=== PATIENT | female | born 1970 | race Caucasian/White ===

== ENCOUNTER 2017-07-06 21:09 | Emergency (ER) | payer BC ==
[2017-07-06] MEDS ORDERED: Aspirin 81 MG Tab.Chew PO ONE (21:24)
[2017-07-06 21:47] VITALS: BP 109/78
[2017-07-06 21:47] LABS: CHLORIDE,CL 106 mEq/L (98-106); SODIUM,NA 139 mEq/L (136-145)
--- NOTE | 2017-07-06 22:18 | EDM.PDOC ---
ED HPI GENERAL MEDICAL PROBLEM - General Chief Complaint: Chest Pain Stated Complaint: "Having chest pain" Time Seen by Provider: 07/06/17 22:14 Source of Information: Reports: Patient History Limitations: Reports: No Limitations - History of Present Illness INITIAL COMMENTS - FREE TEXT/NARRATIVE: Rossana is a 46 yo female who presents to the ER this evening with concerns of lightheadedness and chest pain. States the pain has been intermittent and was seen yesterday in clinic by Ashia Barron. She underwent an EKG and laboratory work with no abnormalities noted. laboratory work was stable with no elevation in cardiac enzymes. She states her heart rate has been elevating as well at times and Dr. Escobar, her primary, has put her on Cardizem for this. She admits the pain is midsternal radiating into the left chest/arm. She denies any shortness of breath with it. States she feels really tired. Today she just relaxed. Is scheduled to undergo an echocardiogram on Wednesday. Onset Date: 07/02/17 Duration: Intermittent Location: Reports: Chest Quality: Reports: Ache, Pressure, Sharp, Stabbing Associated Symptoms: Reports: Headaches Chest Pain Score (Numeric/FACES): 5 - Related Data Allergies Allergy/AdvReac Type Severity Reaction Status Date / Time meperidine HCl [From Demerol] Allergy Rash Verified 11/21/15 09:01 Penicillins Allergy Rash Verified 11/21/15 09:01 Home Meds: Home Meds Estrogens, Conjugated [Premarin] 1 tab PO DAILY 07/09/13 [History] Folic Acid 1 mg PO DAILY 07/09/13 [History] Magnesium Amino Acid Chelate [Magnesium] 100 mg PO DAILY 07/09/13 [History] Melatonin/Pyridoxine HCl (B6) [Melatonin 3 mg Tablet] 1 each PO BEDTIME [History] Multivitamin with Minerals [Multiple Vitamin] 1 tab PO DAILY 07/09/13 [History] QUEtiapine [SEROquel] 50 mg PO BEDTIME 07/09/13 [History] Zolpidem [Ambien] 5 mg PO BEDTIME 07/09/13 [History] risperiDONE [RisperiDAL] 4 mg PO BEDTIME 07/09/13 [History] Aspirin [Halfprin] 81 mg PO DAILY 03/18/15 [History] Celecoxib [CeleBREX] 200 mg PO DAILY 11/21/15 [History] Furosemide [Lasix] 20 mg PO DAILY 07/06/17 [History] Past Medical History Cardiovascular History: Reports: High Cholesterol, Hypertension Psychiatric History: Reports: Anxiety, Bipolar, Depression - Infectious Disease History Infectious Disease History: Reports: MRSA - Past Surgical History GI Surgical History: Reports: Appendectomy, Bariatric Procedure, Cholecystectomy Female Surgical History: Reports: Section, Oophorectomy Social & Family History - Tobacco Use Smoking Status *Q: Never Smoker Years of Tobacco use: 1 Used Tobacco, but Quit: Yes Month/Year Tobacco Last Used: 14 years ago Second Hand Smoke Exposure: No - Alcohol Use Days Per Week of Alcohol Use: 0 - Recreational Drug Use Recreational Drug Use: No ED ROS GENERAL - Review of Systems Review Of Systems: See Below Constitutional: Reports: Weakness, Fatigue. Denies: Fever, Chills HEENT: Reports: No Symptoms Respiratory: Reports: No Symptoms Cardiovascular: Reports: Chest Pain, Lightheadedness, Palpitations GI/Abdominal: Reports: No Symptoms : Reports: No Symptoms ED EXAM, GENERAL - Physical Exam Exam: See Below Exam Limited By: No Limitations General Appearance: Alert, Anxious Ears: Normal External Exam, Hearing Grossly Normal Nose: Normal Inspection, No Blood Throat/Mouth: Normal Inspection, Normal Lips, Normal Voice, No Airway Compromise Head: Atraumatic, Normocephalic Neck: Normal Inspection, Supple Respiratory/Chest: No Respiratory Distress, Lungs Clear, Normal Breath Sounds Cardiovascular: Normal Peripheral Pulses, No Edema, No Murmur, Tachycardia GI/Abdominal: Normal Bowel Sounds, Soft, Non-Tender Extremities: Normal Inspection, No Pedal Edema Neurological: Alert, Oriented, Normal Cognition, No Motor/Sensory Deficits Psychiatric: Anxious. No: Depressed Mood, Flat Affect, Tearful Skin Exam: Warm, Dry, Intact, Normal Color, No Rash EKG INTERPRETATION Rhythm: Other (sinus tachycardia) Course - Vital Signs Last Recorded V/S: Last Vital Signs Temp 96.9 F 07/06/17 21:46 Pulse 128 H 07/06/17 21:46 Resp 20 07/06/17 21:46 BP 109/78 07/06/17 21:46 Pulse Ox 96 07/06/17 21:46 - Orders/Labs/Meds Orders: Active Orders 24 hr Category Date Time Status EKG Documentation Completion [RC] STAT Care 07/06/17 21:23 Active CXR [Chest 2V] [CR] Stat Exams 07/06/17 21:23 Taken Labs: Laboratory Tests 07/06/17 07/06/17 07/06/17 Range/Units 21:23 21:23 21:23 WBC 9.4 (5.0-10.0) 10^3/uL RBC 4.77 (4.00-5.50) 10^6/uL Hgb 13.4 (12.0-16.0) g/dL Hct 41.7 (37.0-47.0) % MCV 87.4 (82.0-94.0) fL MCH 28.1 (27.0-32.0) pg MCHC 32.1 L (33.0-38.0) g/dL RDW Coeff of Escobar 15.4 H (11.0-15.0) % Plt Count 325 (150-400) 10^3/uL Neut % (Auto) 60.3 (35-85) % Lymph % (Auto) 27.8 (10-55) % Izard % (Auto) 10.4 (0-16) % Eos % (Auto) 1.2 (0-5) % Baso % (Auto) 0.3 (0-3) % Neut # (Auto) 5.67 (1.80-7.00) 10^3/uL Lymph # (Auto) 2.61 (1.00-4.80) 10^3/uL Izard # (Auto) 0.98 H (0.00-0.80) 10^3/uL Eos # (Auto) 0.11 (0.00-0.45) 10^3/uL Baso # (Auto) 0.03 10^3/uL PT 9.1 L (9.7-12.3) SEC INR 0.87 L (0.92-1.18) APTT 23.8 (23.2-32.3) SEC Sodium 139 (136-145) mEq/L Potassium 3.2 L (3.5-5.0) mEq/L Chloride 106 (98-106) mEq/L Carbon Dioxide 21 (21-32) mmol/L BUN 17 (7-18) mg/dL Creatinine 0.8 (0.6-1.0) mg/dL Est Cr Clr Drug Dosing TNP Estimated GFR (MDRD) > 60 (>=60) mL/min Glucose 78 (75-99) mg/dL Calcium 8.6 (8.4-10.1) mg/dL Lactate Dehydrogenase 204 H (100-190) U/L Creatine Kinase 65 (21-215) U/L Troponin I < 0.017 (0.00-0.06) ng/mL Meds: Medications Discontinued Medications Generic Name Dose Route Start Last Admin Trade Name Jerilyn PRN Reason Stop Dose Admin Aspirin 324 mg 07/06/17 21:24 07/06/17 21:26 Aspirin PO 07/06/17 21:25 324 mg ONETIME ONE Administration - Re-Assessments/Exams Free Text/Narrative Re-Assessment/Exam: Rossana did well during her time in the ER. Pain subsided and heart rate slowed down into the low 100's. Departure - Departure Time of Disposition: 22:39 Disposition: Home, Self-Care 01 Clinical Impression: Chest pain, atypical, Anxiety Referrals: Jesse Escobar MD [Primary Care Provider] - 3 Days Forms: ED Department Discharge Additional Instructions: 1) All laboratory work in regards to cardiac work up was normal. 2) Potassium was slightly low at 3.2, will start potassium supplement 10 mEq daily 3) Recheck with Dr. Escobar on Wednesday. Continue with echocardiogram on Wednesday 4) Rest tomorrow 5) Return to ER if symptoms worsen on any new onset of symptoms. - Problem List & Annotations (1) Anxiety SNOMED Code(s): 73610123 Code(s): F41.9 - ANXIETY DISORDER, UNSPECIFIED Status: Acute Current Visit: Yes (2) Chest pain, atypical SNOMED Code(s): 811748875 Code(s): R07.89 - OTHER CHEST PAIN Status: Acute Current Visit: Yes - Problem List Review Problem List Initiated/Reviewed/Updated: Yes - My Orders Last 24 Hours: My Active Orders 07/06/17 21:23 EKG Documentation Completion [RC] STAT CXR [Chest 2V] [CR] Stat - Assessment/Plan Last 24 Hours: My Active Orders 07/06/17 21:23 EKG Documentation Completion [RC] STAT CXR [Chest 2V] [CR] Stat Plan: Rossana's chest pain resolved while in ER. Heart rate slowed down in the high 90's /low 100's. Discussed refraining from caffeine, stimulant use. Recommend recheck with Dr. Escobar on Wednesday. Follow up sooner if any concerns.
== END 2017-07-06 22:53 | disposition home or self-care (01) ==
LOC: CC.ED 21:09
DX: R07.89 Other chest pain (principal); F41.9 Anxiety disorder, unspecified; E78.00 Pure hypercholesterolemia, unspecified; I10 Essential (primary) hypertension; F31.9 Bipolar disorder, unspecified; Z88.0 Allergy status to penicillin; Z88.8 Allergy status to other drugs, medicaments and biological substances; Z79.82 Long term (current) use of aspirin; Z79.899 Other long term (current) drug therapy; Z86.14 Personal history of Methicillin resistant Staphylococcus aureus infection
CPT/HCPCS: 36415; 71046; 80048; 82550; 83615; 84484; 85025; 85610; 85730; 93005; 99285; A9270-GY

== ENCOUNTER 2021-05-11 17:30 | Emergency (ER) | payer BC ==
[2021-05-11 17:41] VITALS: BP 124/60; PULSE 80
== END 2021-05-11 18:10 | disposition home or self-care (01) ==
LOC: CC.ED 17:30
DX: F31.9 Bipolar disorder, unspecified (principal); F32.A Depression, unspecified; E78.00 Pure hypercholesterolemia, unspecified; I10 Essential (primary) hypertension; Z88.0 Allergy status to penicillin; Z88.8 Allergy status to other drugs, medicaments and biological substances; Z72.0 Tobacco use; Z79.899 Other long term (current) drug therapy; Z79.82 Long term (current) use of aspirin
CPT/HCPCS: 99283; 99284

== ENCOUNTER 2022-03-09 12:19 | Emergency (ER) | payer BC ==
[2022-03-09 12:26] VITALS: BP 113/55; PULSE 72
[2022-03-09] MEDS ORDERED: Take Home: Acetaminophen/HYDROcodone 325-5 MG, 2 Tab Pack PO ONE (12:34)
== END 2022-03-09 13:05 | disposition home or self-care (01) ==
LOC: CC.ED 12:19
DX: N64.4 Mastodynia (principal); I10 Essential (primary) hypertension; E78.00 Pure hypercholesterolemia, unspecified; Z88.5 Allergy status to narcotic agent; Z88.0 Allergy status to penicillin; Z79.82 Long term (current) use of aspirin; Z79.899 Other long term (current) drug therapy
CPT/HCPCS: 99282; 99284; A9270-GY

== ENCOUNTER 2022-06-21 19:35 | Emergency (ER) | payer BC ==
[2022-06-21] MEDS ORDERED: Azithromycin 250 MG Tab PO ONE (19:45)
[2022-06-21] MEDS ORDERED: methylPREDNISolone Sodium Succinate 40 MG/1 ML SDV IM ONE (19:45)
[2022-06-21] MEDS ORDERED: Codeine/Promethazine 10-6.25 MG/5 ML Syrup 5 ML UD Cup PO ONE (19:46)
[2022-06-21 21:08] VITALS: BP 113/56; PULSE 102
== END 2022-06-21 20:10 | disposition home or self-care (01) ==
LOC: CC.ED 19:35
DX: J06.9 Acute upper respiratory infection, unspecified (principal); E78.00 Pure hypercholesterolemia, unspecified; I10 Essential (primary) hypertension; Z88.0 Allergy status to penicillin; Z79.82 Long term (current) use of aspirin; Z79.899 Other long term (current) drug therapy
CPT/HCPCS: 96372; 99283; A9270-GY; J2920

== ENCOUNTER 2022-10-13 23:15 | Emergency (ER) | payer BC ==
[2022-10-13] MEDS ORDERED: Sodium Chloride 0.9% 10 ML Syringe FLUSH PRN (23:30)
[2022-10-13 23:34] VITALS: PULSE 86
[2022-10-13 23:40] LABS: BASOPHILS ABSOLUTE AUTO 0.04 10^3/uL (0.00-0.50); BASOPHILS PERCENT AUTO 0.5 % (0-1); EOSINOPHILS ABSOLUTE AUTO 0.04 10^3/uL (0.00-1.50); EOSINOPHILS PERCENT AUTO 0.5 % (0-6); HEMATOCRIT 32.6 % (37.0-47.0); HEMOGLOBIN 10.8 g/dL (12.0-16.0); IMMATURE GRAN ABSOLUTE AUTO 0.01 10^3/uL (0.00-0.49); IMMATURE GRAN PERCENT AUTO 0.1 % (0.0-4.9); LYMPHOCYTES ABSOLUTE AUTO 1.13 10^3/uL (0.60-5.00); LYMPHOCYTES PERCENT AUTO 14.6 % (24-44); MEAN CORPUSCULAR HEMOGLOBIN 28.9 pg (27.0-32.0); MEAN CORPUSCULAR HGB CONC 33.1 g/dL (32.0-36.0); MEAN CORPUSCULAR VOLUME 87.2 fL (83.0-97.0); MONOCYTES ABSOLUTE AUTO 0.54 10^3/uL (0.00-1.50); NEUTROPHILS PERCENT AUTO 77.3 % (41-71); PLATELET COUNT,PLT 291 10^3/uL (150-400); RED BLOOD CELL COUNT 3.74 x10^6/uL (4.00-5.50); WHITE BLOOD CELL COUNT,WBC 7.8 10^3/uL (4.0-11.0)
[2022-10-13 23:52] LABS: ALANINE AMINOTRANSFERASE,ALT 25 U/L (12-78); ALBUMIN 3.5 g/dL (3.4-5.0); ALKALINE PHOSPHATASE 96 U/L (46-116); ASPARTATE AMNIOTRANSFERASE,AST 17 U/L (15-37); BILIRUBIN TOTAL 0.2 mg/dL (0.0-1.0); BLOOD UREA NITROGEN,BUN 13 mg/dL (7-18); CALCIUM 8.7 mg/dL (8.4-10.1); CARBON DIOXIDE,CO2 24 mmol/L (21-32); CHLORIDE,CL 106 mEq/L (98-106); CREATININE 0.8 mg/dL (0.6-1.0); EST CRCL DRUG DOSING (CG) 82.72 mL/min; GLUCOSE RANDOM 107 mg/dL (75-99); MAGNESIUM 2.1 mg/dL (1.8-2.4); POTASSIUM,K 4.1 mEq/L (3.5-5.0); PROTEIN TOTAL,TP 6.3 g/dL (6.4-8.2); SODIUM,NA 139 mEq/L (136-145)
[2022-10-13 23:54] LABS: ESTIMATED GFR 90 mL/min (>=60); ETHANOL BLOOD MEDICAL < 3 mg/dL (0-3)
[2022-10-14 00:05] LABS: APPEARANCE,URINE CLEAR (CLEAR); BILIRUBIN,URINE NEGATIVE (NEGATIVE); COLOR,URINE YELLOW (YELLOW); GLUCOSE,URINE NEGATIVE (NEGATIVE); KETONES,URINE NEGATIVE (NEGATIVE); LEUKOCYTE ESTERASE,URINE NEGATIVE (NEGATIVE); NITRITE,URINE NEGATIVE (NEGATIVE); OCCULT BLOOD,URINE NEGATIVE (NEGATIVE); PROTEIN,URINE NEGATIVE (NEGATIVE); UROBILINOGEN,URINE 0.2 EU/dL (0.2-1.0)
[2022-10-14 00:13] LABS: AMPHETAMINES,URINE NEGATIVE (NEGATIVE); BARBITURATES,URINE NEGATIVE (NEGATIVE); BENZODIAZEPINE,URINE POSITIVE (NEGATIVE); MDMA (ECSTASY), URINE NEGATIVE (NEGATIVE); METHADONE,URINE NEGATIVE (NEGATIVE); METHAMPHETAMINES,URINE NEGATIVE (NEGATIVE); OPIATES,URINE NEGATIVE (NEGATIVE); OXYCODONE,URINE NEGATIVE (NEGATIVE); PHENCYCLIDINE,URINE NEGATIVE (NEGATIVE); TCA,URINE NEGATIVE (NEGATIVE)
[2022-10-14] MEDS: Sodium Chloride 0.9% 1,000 ML IV SCH (00:30)
[2022-10-14 01:05] VITALS: BP 107/66
== END 2022-10-14 01:04 | disposition home or self-care (01) ==
LOC: CC.ED 23:15
DX: R41.82 Altered mental status, unspecified (principal); F12.90 Cannabis use, unspecified, uncomplicated; J44.9 Chronic obstructive pulmonary disease, unspecified; I11.0 Hypertensive heart disease with heart failure; I50.9 Heart failure, unspecified; E78.00 Pure hypercholesterolemia, unspecified; Z79.899 Other long term (current) drug therapy; Z88.0 Allergy status to penicillin; Z88.8 Allergy status to other drugs, medicaments and biological substances
CPT/HCPCS: 36415; 70450; 80053; 80305-QW; 80307; 81003; 83735; 85025; 93005; 93010; 96360; 99284; 99285-25; J7030

== ENCOUNTER 2023-04-07 17:31 | Emergency (ER) | payer BC ==
[2023-04-07 17:39] VITALS: BP 125/65; PULSE 80
[2023-04-07] MEDS: Take Home: predniSONE 20 MG, 2 Tab Pack PO ONE (17:45)
[2023-04-07] MEDS: Take Home: Cefuroxime 250 MG Tab, 2 Tab Pack PO ONE (17:45)
== END 2023-04-07 17:50 | disposition home or self-care (01) ==
LOC: CC.ED 17:31
DX: T36.4X5A Adverse effect of tetracyclines, initial encounter (principal); J01.90 Acute sinusitis, unspecified; I11.0 Hypertensive heart disease with heart failure; J44.9 Chronic obstructive pulmonary disease, unspecified; E78.00 Pure hypercholesterolemia, unspecified; I50.9 Heart failure, unspecified; Z88.5 Allergy status to narcotic agent; Z88.0 Allergy status to penicillin; Z90.49 Acquired absence of other specified parts of digestive tract; Z90.710 Acquired absence of both cervix and uterus; Z79.899 Other long term (current) drug therapy
CPT/HCPCS: 99282; A9270-GY; J7512

== ENCOUNTER 2023-12-25 21:30 | Emergency (ER) | payer BC ==
[2023-12-25] MEDS ORDERED: Sodium Chloride 0.9% 10 ML Syringe FLUSH PRN (21:57)
[2023-12-25] MEDS: Ondansetron 4 MG/2 ML SDV IVPUSH STA (22:10)
[2023-12-25] MEDS: HYDROmorphone 0.5 MG/0.5 ML Syringe IVPUSH ONE (22:11)
[2023-12-25 22:13] LABS: BASOPHILS ABSOLUTE AUTO 0.05 10^3/uL (0.00-0.50); BASOPHILS PERCENT AUTO 0.7 % (0-1); EOSINOPHILS ABSOLUTE AUTO 0.12 10^3/uL (0.00-1.50); EOSINOPHILS PERCENT AUTO 1.7 % (0-6); HEMATOCRIT 36.1 % (37.0-47.0); HEMOGLOBIN 11.6 g/dL (12.0-16.0); IMMATURE GRAN ABSOLUTE AUTO 0.01 10^3/uL (0.00-0.49); IMMATURE GRAN PERCENT AUTO 0.1 % (0.0-4.9); LYMPHOCYTES ABSOLUTE AUTO 2.58 10^3/uL (0.60-5.00); LYMPHOCYTES PERCENT AUTO 36.1 % (24-44); MEAN CORPUSCULAR HEMOGLOBIN 28.4 pg (27.0-32.0); MEAN CORPUSCULAR HGB CONC 32.1 g/dL (32.0-36.0); MEAN CORPUSCULAR VOLUME 88.5 fL (83.0-97.0); MONOCYTES ABSOLUTE AUTO 0.61 10^3/uL (0.00-1.50); MONOCYTES PERCENT AUTO 8.5 % (0-10); NEUTROPHILS ABSOLUTE AUTO 3.77 x10^3/uL (1.80-8.00); NEUTROPHILS PERCENT AUTO 52.9 % (41-71); PLATELET COUNT,PLT 260 10^3/uL (150-400); RED BLOOD CELL COUNT 4.08 x10^6/uL (4.00-5.50); WHITE BLOOD CELL COUNT,WBC 7.1 10^3/uL (4.0-11.0)
[2023-12-25 22:16] LABS: APPEARANCE,URINE CLEAR (CLEAR); BILIRUBIN,URINE NEGATIVE (NEGATIVE); COLOR,URINE LIGHT YELLOW (YELLOW); GLUCOSE,URINE NEGATIVE (NEGATIVE); KETONES,URINE NEGATIVE (NEGATIVE); LEUKOCYTE ESTERASE,URINE NEGATIVE (NEGATIVE); NITRITE,URINE NEGATIVE (NEGATIVE); OCCULT BLOOD,URINE NEGATIVE (NEGATIVE); PH,URINE 6.5 (4.5-8.0); PROTEIN,URINE NEGATIVE (NEGATIVE); UROBILINOGEN,URINE 0.2 EU/dL (0.2-1.0)
[2023-12-25 22:25] LABS: ALANINE AMINOTRANSFERASE,ALT 24 U/L (12-78); ALBUMIN 3.4 g/dL (3.4-5.0); ALKALINE PHOSPHATASE 99 U/L (46-116); ASPARTATE AMNIOTRANSFERASE,AST 17 U/L (15-37); BILIRUBIN TOTAL 0.2 mg/dL (0.0-1.0); BLOOD UREA NITROGEN,BUN 12 mg/dL (7-18); CALCIUM 8.7 mg/dL (8.4-10.1); CARBON DIOXIDE,CO2 25 mmol/L (21-32); CHLORIDE,CL 107 mEq/L (98-106); CREATININE 0.8 mg/dL (0.6-1.0); GLUCOSE RANDOM 97 mg/dL (75-99); LIPASE 36 U/L (16-77); POTASSIUM,K 3.6 mEq/L (3.5-5.0); PROTEIN TOTAL,TP 6.1 g/dL (6.4-8.2); SODIUM,NA 142 mEq/L (136-145)
[2023-12-25 22:26] LABS: C-REACTIVE PROTEIN < 0.50 mg/dL (<=0.50); ESTIMATED GFR 89 mL/min (>=60)
[2023-12-25 23:48] VITALS: BP 104/61; PULSE 60
[2023-12-25] MEDS: Iopamidol 755 Mg/ML 100 ML Bottle IVPUSH ONE (23:50)
== END 2023-12-26 00:50 | disposition home or self-care (01) ==
LOC: CC.ED 21:30
DX: R10.31 Right lower quadrant pain (principal); R14.1 Gas pain; I11.0 Hypertensive heart disease with heart failure; I50.9 Heart failure, unspecified; E78.00 Pure hypercholesterolemia, unspecified; J44.9 Chronic obstructive pulmonary disease, unspecified; F17.210 Nicotine dependence, cigarettes, uncomplicated; Z90.49 Acquired absence of other specified parts of digestive tract; Z90.710 Acquired absence of both cervix and uterus; Z79.899 Other long term (current) drug therapy; Z88.1 Allergy status to other antibiotic agents; Z88.5 Allergy status to narcotic agent; Z88.0 Allergy status to penicillin
CPT/HCPCS: 36415; 74177; 80053; 81003; 81025; 83690; 85025; 86140; 96374; 96375; 99284; 99284-25; J1171; J2405; Q9967